=== PATIENT | male | born 1980 | race Caucasian/White ===

== ENCOUNTER 2023-12-25 19:29 | Emergency (ER) | payer SELFPAY ==
[~2023-12-25] VITALS: Ht 167.6 cm; Wt 80.5 kg
[~2023-12-25 19:29] MED LIST: AMOXICILLIN/CLA1 TA1 PO; PREDNISONE20 MG PO
[2023-12-25] MEDS ORDERED: Ibuprofen 400 MG TAB PO ONE (21:30)
[2023-12-25] MEDS ORDERED: Acetaminophen 325 MG TAB PO ONE (21:30)
[2023-12-25 23:18] VITALS: BP 118/73; PULSE 75; TEMP 98
== END 2023-12-25 23:18 | disposition home or self-care (01) ==
LOC: COL.ER 19:29
DX: M25.462 Effusion, left knee (principal); F17.200 Nicotine dependence, unspecified, uncomplicated; V29.99XA Rider (driver) (passenger) of other motorcycle injured in unspecified traffic accident, initial encounter; Y92.410 Unspecified street and highway as the place of occurrence of the external cause
CPT/HCPCS: L1830; L1846